=== PATIENT | female | born 1990 | race Hispanic/Latino ===

== ENCOUNTER 2021-01-12 08:52 | Outpatient (CLI) | payer OTHER ==
[2021-01-13 00:03] LABS: SARS-CoV-2 PCR by NAA Not Detected (NotDetected)
== END 2021-01-12 08:53 | disposition home or self-care (01) ==
LOC: CSHLAB 08:52
PROVIDERS: ATTEND Family Medicine
DX: Z01.812 Encounter for preprocedural laboratory examination (principal); Z20.822 Contact with and (suspected) exposure to COVID-19
CPT/HCPCS: U0003; U0005

== ENCOUNTER 2021-01-15 15:27 | Inpatient (IN) | payer OTHER ==
[2021-01-15] MEDS ORDERED: Butorphanol Tartrate 1 MG/ML VIAL SLOW IVP PRN (21:05)
[2021-01-15] MEDS ORDERED: Diphenoxylate HCl/Atropine Tablet PO PRN (21:05)
[2021-01-15] MEDS ORDERED: Ondansetron PF 4 MG/2 ML Vial IVP PRN (21:05)
[2021-01-15] MEDS ORDERED: Carboprost 250 MCG/ML AMP IM PRN (21:05)
[2021-01-15] MEDS ORDERED: Acetaminophen 500 MG TAB PO PRN (21:05)
[2021-01-15] MEDS ORDERED: Ibuprofen 800 MG TAB PO PRN (21:05)
[2021-01-15] MEDS ORDERED: Misoprostol 200 MCG TAB PR PRN (21:05)
[2021-01-15] MEDS ORDERED: Methylergonovine 0.2 MG/ML VIAL IM PRN (21:05)
[2021-01-15] MEDS ORDERED: Lidocaine 1% (PF) 30 ML VIAL SC PRN (21:05)
[2021-01-15] MEDS ORDERED: Promethazine HCl 25 MG/ML VIAL IM PRN (21:05)
[2021-01-15] MEDS ORDERED: HYDROcodone/Acetaminophen 5/325 mg Tablet PO PRN (21:05)
[2021-01-15] MEDS ORDERED: hydrALAZINE 20 MG/ML VIAL SLOW IVP PRN (21:05)
[2021-01-15] MEDS ORDERED: NS w/ Oxytocin 30 units 500 ML IVPB SCH (21:30)
[2021-01-15] MEDS ORDERED: NS w/ Oxytocin 30 units 500 ML IV SCH ×2 (21:30)
[2021-01-15 21:55] LABS: Hemoglobin 11.5 g/dL (12.0-15.5); Mean Corpuscular Hemoglobin 29.4 pg (27.0-33.0); Mean Corpuscular Volume 89.3 fl (81.6-98.3); Mean Platelet Volume 12.1 fl (7.4-10.4); Platelet Count 222 10x3/uL (150-450); RBC Distribution Width 14.1 % (11.5-14.5); Red Blood Cell (RBC) Count 3.91 10x6/uL (3.90-5.03); White Blood Cell (WBC) Count 11.3 10x3/uL (3.5-10.5)
[2021-01-15 22:38] LABS: Syphilis Antibody Nonreactive (Nonreactive); Syphilis Antibody Index 0.03 S/CO (<1.00 Non-Reactive)
[2021-01-15 22:40] LABS: Hep B Surf Ag Non-Reactive S/CO (NonReactive)
[2021-01-15 23:00] LABS: HBSAg Index 0.21 S/CO (0-0.99)
[2021-01-15] MEDS: Misoprostol 100 MCG TAB VAG SCH (23:40)
[2021-01-16] MEDS: Misoprostol 100 MCG TAB VAG SCH ×2 (03:41→12:38)
[2021-01-16] MEDS ORDERED: Fentanyl 2 mcg/Bup 0.1% Cadd 100 ML ONE (06:11)
[2021-01-16] MEDS: Lactated Ringer's 1,000 ML IV SCH ×2 (06:18→12:41)
[2021-01-16] MEDS ORDERED: diphenhydrAMINE 50 MG/ML VIAL IVP PRN ×2 (07:00→09:17)
[2021-01-16] MEDS ORDERED: ePHEDrine Sulfate 50 MG/10 ML VIAL SLOW IVP PRN (07:00)
[2021-01-16] MEDS ORDERED: Acetaminophen 325 MG TAB PO PRN (07:00)
[2021-01-16] MEDS ORDERED: Lactated Ringer's 500 ML IV PRN (07:00)
[2021-01-16] MEDS ORDERED: Ondansetron PF 4 MG/2 ML Vial IVP PRN ×3 (07:00→10:50)
[2021-01-16] MEDS ORDERED: Naloxone HCl 0.4 mg/ml Vial IVP PRN ×4 (07:00→09:17)
[2021-01-16] MEDS ORDERED: Hydrocerin (Eucerin) Cream 120 gm Jar TOP PRN ×2 (07:00→09:17)
[2021-01-16] MEDS ORDERED: Promethazine HCl 25 MG/ML VIAL IM PRN ×3 (07:00→10:50)
[2021-01-16] MEDS ORDERED: Communication Order-Pharmacy FS SCH ×2 (07:00→09:30)
[2021-01-16] MEDS ORDERED: Fentanyl 2 mcg/Bupivacaine 0.1% Cassette 100 ML EPIDURAL SCH (07:00)
[2021-01-16] MEDS ORDERED: Carboprost 250 MCG/ML AMP IM PRN (07:14)
[2021-01-16] MEDS ORDERED: Famotidine/PF 20 mg/2ml Vial ONE (07:44)
[2021-01-16] MEDS ORDERED: Lidocaine 2% PF 100 mg/5 ml Syringe ONE (07:55)
[2021-01-16] MEDS ORDERED: Phenylephrine 40 MG/NS 250 ML 250 ML ONE (08:11)
[2021-01-16] MEDS ORDERED: Dexamethasone 4 mg/ml Vial ONE (08:11)
[2021-01-16] MEDS ORDERED: Oxytocin 10 UNITS/ML VIAL ONE (08:11)
[2021-01-16] MEDS ORDERED: Metoclopramide HCl 10 MG/2 ML VIAL ONE (08:11)
[2021-01-16] MEDS ORDERED: Ondansetron PF 4 MG/2 ML Vial ONE (08:11)
[2021-01-16] MEDS ORDERED: Ketorolac Tromethamine 30 MG/ML VIAL ONE (08:12)
[2021-01-16] MEDS ORDERED: Morphine PF 10 MG/10 ML VIAL ONE (08:12)
[2021-01-16] MEDS ORDERED: Fentanyl 100 MCG/2 ML VIAL ONE (08:26)
[2021-01-16] MEDS ORDERED: ePHEDrine Sulfate 50 MG/10 ML VIAL ONE (08:41)
[2021-01-16] MEDS ORDERED: Fentanyl 100 MCG/2 ML VIAL SLOW IVP PRN (09:17)
[2021-01-16] MEDS ORDERED: Naloxone HCl 0.4 mg/ml Vial IV PRN (09:17)
[2021-01-16] MEDS ORDERED: Ondansetron HCl/PF 4 MG/2 ML Vial IVP PRN (09:17)
[2021-01-16] MEDS ORDERED: Meperidine HCl/PF 25 MG/ML VIAL SLOW IVP PRN (09:17)
[2021-01-16] MEDS ORDERED: Promethazine HCl 25 MG SUPP PR PRN (09:17)
[2021-01-16] MEDS ORDERED: Boostrix 0.5 ML (Tdap) VIAL IM ONE (10:50)
[2021-01-16] MEDS ORDERED: hydrALAZINE 20 MG/ML VIAL SLOW IVP PRN (10:50)
[2021-01-16] MEDS ORDERED: Bisacodyl 10 MG SUPP PR PRN (10:50)
[2021-01-16] MEDS ORDERED: NS w/ Oxytocin 30 units 500 ML IV SCH (10:50)
[2021-01-16] MEDS ORDERED: diphenhydrAMINE 25 MG CAP PO PRN (10:50)
[2021-01-16] MEDS ORDERED: Ketorolac Tromethamine 30 MG/ML VIAL IVP PRN (14:00)
[2021-01-16] MEDS: Ketorolac Tromethamine 30 MG/ML VIAL IVP SCH ×2 (15:15→20:24)
[2021-01-16] MEDS ORDERED: HYDROcodone/Acetaminophen 5/325 mg Tablet PO PRN (21:30)
[2021-01-16] MEDS ORDERED: Meperidine HCl/PF 25 MG/ML VIAL IM PRN (21:30)
[2021-01-16] MEDS: Ferrous Sulfate 325 MG TAB PO SCH (22:31)
[2021-01-16] MEDS: Docusate Calcium (SURFAK) 240 MG CAP PO SCH (22:31)
[2021-01-17] MEDS: Simethicone Chewable 80 MG TAB PO PRN ×3 (02:16→21:57)
[2021-01-17] MEDS: Ketorolac Tromethamine 30 MG/ML VIAL IVP SCH ×2 (02:16→09:10)
[2021-01-17 05:26] LABS: Hemoglobin 7.1 g/dL (12.0-15.5); Mean Corpuscular HGB CONC 32.9 g/dL (32.0-36.0); Mean Corpuscular Hemoglobin 29.5 pg (27.0-33.0); Mean Corpuscular Volume 89.6 fl (81.6-98.3); Mean Platelet Volume 11.8 fl (7.4-10.4); Platelet Count 165 10x3/uL (150-450); RBC Distribution Width 14.4 % (11.5-14.5); Red Blood Cell (RBC) Count 2.41 10x6/uL (3.90-5.03); White Blood Cell (WBC) Count 15.4 10x3/uL (3.5-10.5)
[2021-01-17] MEDS: Docusate Calcium (SURFAK) 240 MG CAP PO SCH ×2 (09:10→21:57)
[2021-01-17] MEDS: Prenatal Vitamin 1 TAB PO SCH (09:10)
[2021-01-17] MEDS: Ferrous Sulfate 325 MG TAB PO SCH ×2 (09:10→21:57)
[2021-01-17] MEDS: Ibuprofen 800 MG TAB PO SCH (17:05)
[2021-01-17] MEDS: HYDROcodone/Acetaminophen 5/325 mg Tablet PO PRN (20:11)
[2021-01-18] MEDS: Ibuprofen 800 MG TAB PO SCH ×4 (00:08→22:15)
[2021-01-18] MEDS: Docusate Calcium (SURFAK) 240 MG CAP PO SCH ×2 (09:09→22:16)
[2021-01-18] MEDS: Ferrous Sulfate 325 MG TAB PO SCH ×2 (09:09→22:15)
[2021-01-18] MEDS: HYDROcodone/Acetaminophen 5/325 mg Tablet PO PRN ×2 (09:10→15:21)
[2021-01-18] MEDS: Simethicone Chewable 80 MG TAB PO PRN (09:10)
[2021-01-18] MEDS: Lanolin Ointment 7 GM TUBE TOP PRN (09:13)
[2021-01-19] MEDS: Ibuprofen 800 MG TAB PO SCH ×2 (06:54→07:16)
[2021-01-19 08:01] VITALS: BP 118/75; TEMP 98.7
[2021-01-19] MEDS: Prenatal Vitamin 1 TAB PO SCH (08:26)
[2021-01-19] MEDS: Docusate Calcium (SURFAK) 240 MG CAP PO SCH (08:26)
[2021-01-19] MEDS: Ferrous Sulfate 325 MG TAB PO SCH (08:26)
[2021-01-19] MEDS: Lanolin Ointment 7 GM TUBE TOP PRN (08:34)
== END 2021-01-19 13:15 | disposition home or self-care (01) | DRG 788 ==
LOC: CSHLD 19:51 → CSHPP 01-16 12:10
PROVIDERS: ADMIT Family Medicine; ATTEND Family Medicine
PROC: 10D00Z1 Extraction of Products of Conception, Low, Open Approach (ICD-10-PCS; principal; 2021-01-16)
DX: O32.1XX0 Maternal care for breech presentation, not applicable or unspecified (principal); Z3A.40 40 weeks gestation of pregnancy; Z87.442 Personal history of urinary calculi; Z37.0 Single live birth
CPT/HCPCS: 36415; 51702; 85027; 86780; 86850; 86900; 86901; 87340; J0595; J0690; J1100; J1200; J1885; J2175; J2210; J2274; J2405; J2550; J2590; J2765; J3010; J7120; S0028

== ENCOUNTER 2022-06-01 22:27 | Emergency (ER) | payer OTHER ==
[2022-06-02] MEDS ORDERED: Ketorolac Tromethamine 30 MG/ML VIAL ONE (00:15)
[2022-06-02] MEDS ORDERED: Ondansetron ODT 4 MG TAB ONE (00:41)
[2022-06-02 00:42] LABS: Bilirubin Neg (Negative); Blood, Urine 25 (Negative); Clarity Slightly Cloudy (Clear); Glucose, Urine (Dipstick) Normal (Negative); Ketone, Urine 150 mg/dL (Negative); Leukocyte Negative (Negative); Nitrite Negative (Negative); Protein, Urine (Dipstick) Negative (Neg-Trace); Urobilinogen Normal mg/dL (Less than 2)
[2022-06-02 00:52] LABS: Bacteria/HPF None Seen HPF (None Seen); RBC/HPF 0-3 HPF (0-3); WBC/HPF None Seen HPF (0-3)
[2022-06-02 00:53] LABS: Pregnancy Test - Urine (BHCG) Negative (Negative); Pregu Control Background? CLEAR/WHITE (CLR/WHITE); Pregu Control Bar Appear? YES (CONTROL BAR)
== END 2022-06-02 01:28 | disposition home or self-care (01) ==
LOC: CSHERS 22:27
DX: R10.9 Unspecified abdominal pain (principal)
CPT/HCPCS: 81003; 81015; 81025; 96372; 99284; J1885; Q0162